=== PATIENT | male | born 1955 | race Caucasian/White ===

== ENCOUNTER → 2016-06-23 | Outpatient (CLI) | payer BC ==
[~2016-06-23] MED LIST: LXP/10 PO; NAPR375T PO; OLME40TA30 PO; SIMV20TA2 PO
--- NOTE | 2016-06-23 09:01 | DIAGNOSTIC IMAGING REPORT ---
THYROID ULTRASOUND CLINICAL HISTORY: Thyroid nodules. COMPARISON STUDY: Thyroid ultrasound March 07, 2016 and ultrasound guided fine needle aspiration of thyroid nodules March 22, 2016. TECHNIQUE: Sonography of the thyroid gland was performed. FINDINGS: The right thyroid lobe measures 4.4 x 1.5 x 0.9 cm and the left lobe measures 6.4 x 2.3 x 2.2 cm. There are no right lobe nodules. The solid left lower pole nodule was previously biopsied and is similar to prior exam, measuring 2.4 x 1.1 x 2.1 cm. The solid upper pole nodule was previously biopsied and is similar to prior exam, measuring 3.9 x 1.9 x 1.8 cm. A 2 cm cystic nodule within the lower pole of the left lobe is similar to prior exam. IMPRESSION: No change in several left lobe thyroid nodules since exam of March 07, 2016. The two solid nodules were previously biopsied. Electronically signed by: Niranjan Macario M.D. 06/23/2016 8:59 AM Dictated Date/Time: 06/23/2016 8:57 AM
== END | disposition home or self-care (01) ==
LOC: C.ULTR 08:31
DX: E04.1 Nontoxic single thyroid nodule (principal)

== ENCOUNTER → 2016-08-19 | Outpatient (CLI) | payer BC ==
[2016-08-19 12:11] LABS: BASO % 0.4 %; BASO ABS # 0.04 K/uL (0-0.2); COMPLETE YES; EOS % 3.6 %; HEMATOCRIT 46.6 % (42-52); IG% 0.3 %; LYMPH % 18.4 %; MEAN CELL VOLUME 96.9 fL (80-100); MEAN CORPUSCULAR HEMOGLOBIN 34.9 pg (25-34); MEAN CORPUSCULAR HGB CONC 36.1 g/dl (32-36); MEAN PLATELET VOLUME 11.1 fL (7.4-10.4); MONO % 6.7 %; NEUT % 70.6 %; PLATELET COUNT 293 K/uL (130-400); RED BLOOD COUNT 4.81 M/uL (4.7-6.1); WHITE BLOOD COUNT 10.88 K/uL (4.8-10.8)
[2016-08-19 12:20] LABS: ALT/SGPT 43 U/L (12-78); AST/SGOT 37 U/L (15-37); BLOOD UREA NITROGEN 31 mg/dl (7-18); BUN/CREATININE RATIO 31.9 (10-20); CALCIUM 9.4 mg/dl (8.5-10.1); CARBON DIOXIDE 31 mmol/L (21-32); CHLORIDE 103 mmol/L (98-107); CREATININE 0.97 mg/dl (0.60-1.40); GLUCOSE 102 mg/dl (70-99); SODIUM 140 mmol/L (136-145)
== END | disposition home or self-care (01) ==
LOC: C.LAB 10:52
DX: I10 Essential (primary) hypertension (principal); E78.5 Hyperlipidemia, unspecified

== ENCOUNTER 2016-09-16 16:40 | Emergency (ER) | payer BC ==
[~2016-09-16] VITALS: Ht 175.3 cm; Wt 76.0 kg
[2016-09-16 16:52] VITALS: TEMP 36.7; Ht 175.3 cm; Wt 76.0 kg
--- NOTE | 2016-09-16 17:35 | EMERGENCY ROOM VISIT NOTE ---
ED Visit Note First contact with patient: 17:06 CHIEF COMPLAINT: Foot pain HISTORY OF PRESENT ILLNESS: This 60-year-old male patient presents to the emergency department ambulatory complaining of swelling and pain in the left foot at rest and worse with weight bearing. The patient states that he was breaking boards by stepping on them with forced this morning. He states that the pain started several hours later. He did not fall to the ground. The patient rates the pain as sharp and 5/10. The patient has no relief of the pain. The patient is able to walk. No numbness or weakness. No ankle pain. There are no lacerations of the foot. The patient is able to move all of their toes and their ankle without pain. Patient denies previous injury to this foot. REVIEW OF SYSTEMS: GENERAL: A 6 system review of systems was completed with positives and pertinent negatives in the HPI. ALLERGIES: No known allergies MEDICATIONS: See nursing notes PMH: Hypertension, hyperlipidemia, back pain SOCIAL HISTORY: The patient is a smoker. He lives locally PHYSICAL EXAM: Vital Signs: Reviewed Nurse's notes, vital signs stable. GENERAL : This is a 60-year-old male, in no acute distress, but appears in pain, well- developed, well-nourished. MUSCULOSKELETAL: There is no visual deformity of the left foot. There is no erythema no ecchymosis. There is no warmth. There is tenderness and swelling over the dorsal aspect of the left foot in the area of the first metatarsal he also has tenderness over the plantar aspect in the area of the first metatarsal. The range of motion of the foot is mildly limited secondary to pain. There is no tenderness over the plantar fascia. The skin is intact and there are no lacerations or puncture wounds. Dorsalis pedis pulse 2+ . Capillary refill less than 2 seconds. EMERGENCY DEPARTMENT COURSE: I examined the patient. An X-ray of the last foot was reviewed by myself and radiology and reveals no fracture dislocation. The patient was placed in a post-op shoe and he declined crutches. The patient was discharged home in good condition. LEFT FOOT MIN 3 VIEWS ROUTINE CLINICAL HISTORY: left foot pain pain COMPARISON: None. DISCUSSION: The bones and joint spaces appear intact. There is no evidence of fracture, dislocation or bony disease. There is no evidence for soft tissue swelling. IMPRESSION: Negative study. DIAGNOSIS: Foot pain TREATMENT: Ice and elevation for 24-48 hrs. Ibuprofen, 600mg and Tylenol 1000 mg every 6 hours for the pain. Avoid weight bearing and use crutches and post- op shoe until the pain subsides and you can walk without a limp. Follow up with family doctor or orthopedic surgeon if symptoms persist in 5-7 days. Current/Historical Medications Scheduled Escitalopram Oxalate (Lexapro), 10 MG PO DAILY Naproxen (Naprosyn), 375 MG PO BID Olmesartan/Hctz (Benicar Hct 40/12.5), 1 TAB PO DAILY Simvastatin (Zocor), 20 MG PO QPM Allergies Coded Allergies: No Known Allergies (Verified , 03/12/13) Vital Signs Date Time Temp Pulse Resp B/P Pulse Ox O2 Delivery O2 Flow Rate FiO2 09/16/16 18:20 95 18 110/68 95 09/16/16 16:52 36.7 100 16 140/80 95 Room Air Departure Information Impression Primary Impression: Contusion of foot Dispostion Home / Self-Care Condition [employer] Referrals Loco Clayton Jr,D.O. (PCP) Brayden Stuart M.D. Patient Instructions ED Contusion Foot, [facility] Additional Instructions Motrin 600 mg every 6-8 hours or moderate pain Ice intermittently over the next 24 hours Wear the splint for the next 5-7 days when up and about Contact orthopedics to schedule a follow-up appointment if no improvement in 5- 7 days
--- NOTE | 2016-09-16 17:44 | DIAGNOSTIC IMAGING REPORT ---
LEFT FOOT MIN 3 VIEWS ROUTINE CLINICAL HISTORY: left foot pain pain COMPARISON: None. DISCUSSION: The bones and joint spaces appear intact. There is no evidence of fracture, dislocation or bony disease. There is no evidence for soft tissue swelling. IMPRESSION: Negative study. Electronically signed by: Haider Fox M.D. 09/16/2016 5:42 PM Dictated Date/Time: 09/16/2016 5:42 PM
[2016-09-16 18:20] VITALS: BP 110/68; PULSE 95; O2SAT 95
== END 2016-09-16 18:21 | disposition home or self-care (01) ==
LOC: C.EDB 16:41 → C.EDD 18:21
DX: S90.32XA Contusion of left foot, initial encounter (principal); W22.8XXA Striking against or struck by other objects, initial encounter; I10 Essential (primary) hypertension; E78.5 Hyperlipidemia, unspecified; M54.9 Dorsalgia, unspecified; F17.210 Nicotine dependence, cigarettes, uncomplicated

== ENCOUNTER → 2016-12-23 | Outpatient (CLI) | payer BC ==
--- NOTE | 2016-12-23 13:03 | DIAGNOSTIC IMAGING REPORT ---
SOFT TISS HEAD/NECK-THYROID CLINICAL HISTORY: 61 years-old Male presenting with THYROID NODULES. TECHNIQUE: Real-time grayscale and color and spectral Doppler ultrasound imaging of the thyroid and base of the neck was performed. COMPARISON: 06/23/2016. FINDINGS: Right lobe: Normal echogenicity and echotexture. The right lobe of the thyroid measures 1.7 x 5.8 x 1.2 cm. No nodules. Normal perfusion of the parenchyma. Left lobe: Heterogeneity secondary to the presence of nodules. The left lobe of the thyroid measures 7.1 x 2.4 x 2.7 cm. Nodule listed below: 1) dominant predominantly solid isoechoic nodule, previously biopsied, now measures 3.7 x 1.6 x 2.0 cm, previously 3.9 x 1.9 x 1.8 cm. This is well-defined without calcification. (Low suspicion) 2) cystic nodule at the lower pole is no longer visualized on the current exam No parenchymal hyperemia. Isthmus: The isthmus measures 2 mm in thickness. No nodules. IMPRESSION: Essentially stable appearance of the dominant left thyroid lobe nodule, previously biopsied. No new or suspicious nodule. Electronically signed by: Gallito Magdaleno M.D. 12/23/2016 1:02 PM Dictated Date/Time: 12/23/2016 12:57 PM
== END | disposition home or self-care (01) ==
DX: E04.2 Nontoxic multinodular goiter (principal)

== ENCOUNTER → 2017-01-27 | Outpatient (CLI) | payer BC ==
[2017-01-27 15:16] LABS: ALT/SGPT 27 U/L (12-78); BLOOD UREA NITROGEN 27 mg/dl (7-18); BUN/CREATININE RATIO 26.9 (10-20); CALCIUM 9.5 mg/dl (8.5-10.1); CARBON DIOXIDE 30 mmol/L (21-32); CHLORIDE 104 mmol/L (98-107); CREATININE 0.99 mg/dl (0.60-1.40); GLUCOSE 98 mg/dl (70-99); POTASSIUM 4.1 mmol/L (3.5-5.1); SODIUM 139 mmol/L (136-145)
[2017-01-27 15:19] LABS: ALB/GLOB RATIO 1.1 (0.9-2); ALKALINE PHOSPHATASE 61 U/L (45-117); AST/SGOT 23 U/L (15-37)
== END | disposition home or self-care (01) ==
LOC: C.LAB 12:35
PROVIDERS: ATTEND Psychologist Clinical
DX: Z79.899 Other long term (current) drug therapy (principal)

== ENCOUNTER → 2017-02-15 | Outpatient (CLI) | payer BC ==
[2017-02-15 13:15] LABS: BASO % 0.4 %; BASO ABS # 0.03 K/uL (0-0.2); COMPLETE YES; EOS % 0.6 %; HEMATOCRIT 52.6 % (42-52); IG% 0.4 %; LYMPH % 23.8 %; LYMPH ABS # 1.99 K/uL (1.2-3.4); MEAN CELL VOLUME 98.3 fL (80-100); MEAN CORPUSCULAR HGB CONC 35.6 g/dl (32-36); MEAN PLATELET VOLUME 10.9 fL (7.4-10.4); MONO % 8.8 %; PLATELET COUNT 278 K/uL (130-400); RED BLOOD COUNT 5.35 M/uL (4.7-6.1); WHITE BLOOD COUNT 8.37 K/uL (4.8-10.8)
[2017-02-15 13:41] LABS: ALT/SGPT 25 U/L (12-78); AST/SGOT 15 U/L (15-37); BLOOD UREA NITROGEN 22 mg/dl (7-18); BUN/CREATININE RATIO 20.3 (10-20); CALCIUM 9.5 mg/dl (8.5-10.1); CARBON DIOXIDE 32 mmol/L (21-32); CHLORIDE 101 mmol/L (98-107); GLUCOSE 103 mg/dl (70-99); POTASSIUM 3.8 mmol/L (3.5-5.1); SODIUM 137 mmol/L (136-145)
== END | disposition home or self-care (01) ==
LOC: C.LAB 11:59
DX: E78.5 Hyperlipidemia, unspecified (principal)

== ENCOUNTER → 2017-03-01 | Outpatient (CLI) | payer BC ==
[2017-03-01 12:49] LABS: BASO % 0.4 %; BASO ABS # 0.05 K/uL (0-0.2); EOS % 1.2 %; HEMATOCRIT 45.8 % (42-52); IG% 0.5 %; LYMPH % 11.5 %; LYMPH ABS # 1.57 K/uL (1.2-3.4); MEAN CELL VOLUME 96.6 fL (80-100); MEAN CORPUSCULAR HEMOGLOBIN 34.4 pg (25-34); MEAN CORPUSCULAR HGB CONC 35.6 g/dl (32-36); MEAN PLATELET VOLUME 10.7 fL (7.4-10.4); NEUT % 80.4 %; PLATELET COUNT 287 K/uL (130-400); RED BLOOD COUNT 4.74 M/uL (4.7-6.1); WHITE BLOOD COUNT 13.64 K/uL (4.8-10.8)
[2017-03-01 13:14] LABS: COMPLETE YES
--- NOTE | 2017-03-01 13:59 | DIAGNOSTIC IMAGING REPORT ---
CHEST 2 VIEWS ROUTINE CLINICAL HISTORY: POLYCYTHEMIA, HYPERTENSION. COMPARISON STUDY: Chest radiograph January 07, 2010. FINDINGS: Lung volumes are normal. No pneumothorax or pleural effusion is present. Pulmonary vascularity is normal. Cardiomediastinal silhouette is normal. No consolidation is identified. IMPRESSION: No acute cardiopulmonary findings. Electronically signed by: Niranjan Macario M.D. 03/01/2017 1:58 PM Dictated Date/Time: 03/01/2017 1:57 PM
[2017-03-01 14:12] LABS: BLOOD UREA NITROGEN 26 mg/dl (7-18); BUN/CREATININE RATIO 26.4 (10-20); CARBON DIOXIDE 29 mmol/L (21-32); CHLORIDE 107 mmol/L (98-107); CREATININE 0.97 mg/dl (0.60-1.40); GLUCOSE 96 mg/dl (70-99); SODIUM 142 mmol/L (136-145)
== END ==
LOC: C.RAD 11:54
DX: D75.1 Secondary polycythemia (principal); I10 Essential (primary) hypertension

== ENCOUNTER → 2017-03-15 | Outpatient (CLI) | payer BC ==
[2017-03-15 13:19] LABS: BASO % 0.3 %; BASO ABS # 0.03 K/uL (0-0.2); COMPLETE YES; HEMATOCRIT 47.2 % (42-52); IG% 0.7 %; LYMPH % 14.7 %; LYMPH ABS # 1.74 K/uL (1.2-3.4); MEAN CELL VOLUME 97.3 fL (80-100); MONO % 6.6 %; NEUT % 75.7 %; PLATELET COUNT 247 K/uL (130-400); RED BLOOD COUNT 4.85 M/uL (4.7-6.1); WHITE BLOOD COUNT 11.86 K/uL (4.8-10.8)
== END | disposition home or self-care (01) ==
LOC: C.LAB 11:35
DX: D72.829 Elevated white blood cell count, unspecified (principal)

== ENCOUNTER → 2017-06-08 | Outpatient (CLI) | payer BC, OTHER ==
--- NOTE | 2017-06-08 13:18 | DIAGNOSTIC IMAGING REPORT ---
THYROID ULTRASOUND HISTORY: Follow-up THYROID NODULE COMPARISON: Thyroid ultrasound 12/23/2016. Thyroid ultrasound 06/23/2016. FINDINGS: Right lobe: 5.4 x 1.7 x 1.4 cm. No nodules. Left lobe: 6.7 x 2.5 x 2.6 cm. No change in the predominantly solid nodules. The dominant upper pole nodule measures 3.8 x 2.4 x 1.8 cm. The lower pole nodule measures 1.9 x 1.7 x 1.9 cm. These were previously biopsied. No new nodules. Isthmus: 3 mm in thickness. No nodules. IMPRESSION: Stable left thyroid nodules. No new nodules identified. Electronically signed by: Sheldon Scott M.D. 06/08/2017 1:17 PM Dictated Date/Time: 06/08/2017 1:13 PM
== END | disposition home or self-care (01) ==
LOC: C.ULTR 12:47
DX: E04.2 Nontoxic multinodular goiter (principal)

== ENCOUNTER → 2017-08-08 | Outpatient (CLI) | payer OTHER ==
[2017-08-08 11:16] LABS: BASO % 0.4 %; BASO ABS # 0.05 K/uL (0-0.2); EOS % 0.7 %; EOS ABS # 0.09 K/uL (0-0.5); HEMATOCRIT 47.9 % (42-52); HEMOGLOBIN 16.9 g/dL (14.0-18.0); IG# 0.06 K/uL (0.00-0.02); LYMPH % 11.3 %; LYMPH ABS # 1.52 K/uL (1.2-3.4); MEAN CELL VOLUME 96.8 fL (80-100); MEAN CORPUSCULAR HEMOGLOBIN 34.1 pg (25-34); MEAN CORPUSCULAR HGB CONC 35.3 g/dl (32-36); MEAN PLATELET VOLUME 10.4 fL (7.4-10.4); MONO % 6.4 %; MONO ABS # 0.86 K/uL (0.11-0.59); NEUT % 80.8 %; NEUT ABS # 10.82 K/uL (1.4-6.5); PLATELET COUNT 298 K/uL (130-400); RED CELL DISTRIBUTION WIDTH SD 49.4 fL (36.4-46.3)
== END | disposition home or self-care (01) ==
LOC: C.LAB 10:24
DX: D75.1 Secondary polycythemia (principal)

== ENCOUNTER → 2018-01-01 | Outpatient (CLI) | payer OTHER ==
[2018-01-01 09:55] LABS: BASO % 0.2 %; BASO ABS # 0.03 K/uL (0-0.2); EOS % 2.9 %; EOS ABS # 0.37 K/uL (0-0.5); HEMATOCRIT 46.3 % (42-52); HEMOGLOBIN 16.3 g/dL (14.0-18.0); IG# 0.05 K/uL (0.00-0.02); LYMPH % 15.7 %; LYMPH ABS # 2.04 K/uL (1.2-3.4); MEAN CELL VOLUME 97.1 fL (80-100); MEAN CORPUSCULAR HEMOGLOBIN 34.2 pg (25-34); MEAN CORPUSCULAR HGB CONC 35.2 g/dl (32-36); MEAN PLATELET VOLUME 10.7 fL (7.4-10.4); MONO % 6.6 %; MONO ABS # 0.86 K/uL (0.11-0.59); NEUT % 74.2 %; NEUT ABS # 9.62 K/uL (1.4-6.5); PLATELET COUNT 255 K/uL (130-400); RED CELL DISTRIBUTION WIDTH CV 13.9 % (11.5-14.5); RED CELL DISTRIBUTION WIDTH SD 49.8 fL (36.4-46.3); WHITE BLOOD COUNT 12.97 K/uL (4.8-10.8)
[2018-01-01 10:57] LABS: BLOOD UREA NITROGEN 23 mg/dl (7-18); CALCIUM 9.6 mg/dl (8.5-10.1); CARBON DIOXIDE 31 mmol/L (21-32); CHOLESTEROL 168 mg/dl (0-200); CREATININE 1.12 mg/dl (0.60-1.40); GLUCOSE 78 mg/dl (70-99); LDL CHOLESTEROL CALCULATED 87 mg/dl; POTASSIUM 3.9 mmol/L (3.5-5.1); SODIUM 138 mmol/L (136-145)
== END | disposition home or self-care (01) ==
LOC: C.LAB 08:53
DX: Z13.220 Encounter for screening for lipoid disorders (principal); D72.829 Elevated white blood cell count, unspecified; I10 Essential (primary) hypertension